=== PATIENT | female | born 1955 | race Caucasian/White ===

== ENCOUNTER 2018-12-18 21:36 | Emergency (ER) | payer OTHER, SELFPAY ==
[2018-12-18] MEDS ORDERED: FAMOTIDINE 20 MG/2 ML VIAL IV ONE (22:41)
[2018-12-18] MEDS ORDERED: ONDANSETRON 4 MG/2 ML VIAL ONE (22:41)
[2018-12-18 23:16] LABS: Absolute Monocytes 0.3 K/uL (0.1-1.3); Absolute Neutrophil 2.8 K/uL (1.8-8.0); Basophils % 0.9 % (0-1.3); Eosinophils % 1.6 % (0-4.4); Hematocrit 45.8 % (36.0-45.0); Lymphocytes % 38.5 % (15.3-44.8); MPV 8.5 fL (7.6-11.3); RBC Red Blood Cell Count 4.63 M/uL (3.86-4.86)
[2018-12-18 23:47] LABS: ALT/SGPT 46 U/L (12-78); AST/SGOT 48 U/L (15-37); Albumin 4.4 g/dL (3.4-5.0); Alkaline Phosphatase 66 U/L (45-117); BUN Blood Urea Nitrogen 6 mg/dL (7-18); Bicarbonate 29 mmol/L (21-32); Bilirubin Direct 0.1 mg/dL (0-0.2); Bilirubin Total 0.4 mg/dL (0.2-1.0); Glucose Level 100 mg/dL (74-106); Lipase 308 U/L (73-393); Magnesium 2.1 mg/dL (1.8-2.4); Potassium 4.2 mmol/L (3.5-5.1); Protein, Total 7.8 g/dL (6.4-8.2); Sodium Level 145 mmol/L (136-145)
--- NOTE | 2018-12-19 02:33 | ER ---
Nurse's Notes [facility] Name: Jyoti Trejo Age: 63 yrs Sex: Female : 1955 Arrival Date: 12/18/2018 Time: 21:36 Bed 13 Private MD: Diagnosis: Unspecified abdominal pain Presentation: 12/18 21:57 Presenting complaint: EMS states: PATIENT COMPLAINS OF ABD PAIN, RIGHT UPPER QUADRANT, rv AND IT MAKES HER HARDER TO BREATH. NO NAUSEA/VOMITING. SHE FELL LAST WEEK, LANDED ON HER BACK. NO OTHER ASSOCIATED SYMPTOMS. Transition of care: patient was not received from another setting of care. Onset of symptoms was December 18, 2018 at 21:30. Risk Assessment: Do you want to hurt yourself or someone else? Patient reports no desire to harm self or others. Initial Sepsis Screen: Does the patient meet any 2 criteria? No. Patient's initial sepsis screen is negative. Does the patient have a suspected source of infection? No. Patient's initial sepsis screen is negative. Care prior to arrival: None. 21:57 Method Of Arrival: EMS: [facility] 21:57 Acuity: SHANIKA 3 rv Triage Assessment: 22:04 General: Appears in no apparent distress. uncomfortable, unkempt, Behavior is calm, rv cooperative, Smells of alcohol. Pain: Complains of pain in right upper quadrant. EENT: No signs and/or symptoms were reported regarding the EENT system. Neuro: Level of Consciousness is awake, alert, obeys commands, Oriented to person, place, time, situation. Cardiovascular: Capillary refill < 3 seconds. Respiratory: Airway is patent. GI: Abdomen is flat. : No signs and/or symptoms were reported regarding the genitourinary system. Derm: Skin is intact. Musculoskeletal: No signs and/or symptoms reported regarding the musculoskeletal system. Historical: - Allergies: 22:02 No Known Allergies; rv - Home Meds: 22:02 None [Active]; rv - PMHx: 22:02 Hypertension; rv - PSHx: 22:02 Hysterectomy; Appendectomy; Cholecystectomy; rv - Immunization history:: Adult Immunizations unknown. - Social history:: Smoking status: Patient/guardian denies using tobacco, Patient uses alcohol, on a daily basis. - Ebola Screening: : Patient negative for fever greater than or equal to 101.5 degrees Fahrenheit, and additional compatible Ebola Virus Disease symptoms Patient denies exposure to infectious person Patient denies travel to an Ebola-affected area in the 21 days before illness onset. Screenin:06 Abuse screen: Denies threats or abuse. Denies injuries from another. Nutritional rv screening: No deficits noted. Tuberculosis screening: No symptoms or risk factors identified. Fall Risk None identified. Assessment: 22:05 General: Appears in no apparent distress. uncomfortable, Behavior is calm, cooperative, rr5 appropriate for age, Smells of alcohol. 22:05 Pain: Complains of pain in right upper quadrant Pain does not radiate. Pain currently rr5 is 8 out of 10 on a pain scale. Quality of pain is described as aching, Pain began 30 min ago. Is intermittent. Neuro: Level of Consciousness is awake, alert, obeys commands, Oriented to person, place, time, situation, Appropriate for age. Cardiovascular: Capillary refill < 3 seconds Patient's skin is warm and dry. Respiratory: Airway is patent Respiratory effort is even, unlabored, Respiratory pattern is regular, symmetrical. GI: Abdomen is round Reports lower abdominal pain. : No signs and/or symptoms were reported regarding the genitourinary system. EENT: No signs and/or symptoms were reported regarding the EENT system. Derm: No signs and/or symptoms reported regarding the dermatologic system. Musculoskeletal: Capillary refill < 3 seconds, Range of motion: intact in all extremities. 22:07 GI: Bowel sounds present X 4 quads. Abdomen is tender to palpation X 4 quads. rv 23:15 Reassessment: Patient appears in no apparent distress at this time. Patient is alert, rr5 oriented x 3, equal unlabored respirations, skin warm/dry/pink. asleep comfortably on bed. 04 00:30 Reassessment: Patient appears in no apparent distress at this time. Patient is alert, rr5 oriented x 3, equal unlabored respirations, skin warm/dry/pink. no complaints made. Patient states symptoms have improved. 01:30 Reassessment: Patient appears in no apparent distress at this time. Patient is alert, rr5 oriented x 3, equal unlabored respirations, skin warm/dry/pink. awaiting for result. Patient states feeling better. Patient states symptoms have improved. 03:00 Reassessment: Patient appears in no apparent distress at this time. Patient is alert, rr5 oriented x 3, equal unlabored respirations, skin warm/dry/pink. able to tolerate PO challenge. 03:28 Reassessment: Patient appears in no apparent distress at this time. Patient is alert, rr5 oriented x 3, equal unlabored respirations, skin warm/dry/pink. discharge instruction given and explained without complaints made. Patient states symptoms have improved. Vital Signs: 12/18 22:03 BP 105 / 76 LA; Pulse 98; Resp 19 S; Temp 97.9(O); Pulse Ox 100% on R/A; Weight 61.23 rv kg (R); Height 5 ft. 3 in. (160.02 cm) (R); 23:00 BP 108 / 70; Pulse 90; Resp 17; Pulse Ox 99% ; rr5 04 00:00 BP 110 / 76; Pulse 96; Resp 18; Pulse Ox 100% ; rr5 01:00 BP 115 / 70; Pulse 90; Resp 17; Pulse Ox 99% ; rr5 02:00 BP 105 / 65; Pulse 80; Resp 16; Pulse Ox 98% ; rr5 03:00 BP 109 / 63; Pulse 79; Resp 19; Pulse Ox 100% ; rr5 03:30 BP 118 / 70; Pulse 75; Resp 17; Pulse Ox 99% ; rr5 04 22:03 Body Mass Index 23.91 (61.23 kg, 160.02 cm) rv ED Course: 12/18 21:36 Patient arrived in ED. ds1 21:38 Dane Shore PA is PHCP. cp 21:38 Geovani Dowling MD is Attending Physician. cp 21:57 Travis Bruner RN is Primary Nurse. rv 21:59 Triage completed. rv 22:00 Maintain EMS IV. Dressing intact. Site clean \T\ dry. Gauge \T\ site: G20 right upper arm. rr 5 22:06 Patient has correct armband on for positive identification. Bed in low position. Call rv light in reach. Side rails up X 1. Adult w/ patient. Pulse ox on. NIBP on. 22:06 Patient placed in an exam room, on a stretcher, on pulse oximetry, Patient notified of rv wait time. 22:19 Oral contrast given. vm2 22:20 Inserted saline lock: 20 gauge in left antecubital area, using aseptic technique. Blood rr5 collected. 12/19 01:41 CT completed. Patient tolerated procedure well. Patient moved to CT via wheelchair. Patient moved back from CT. 02:04 CT Abd/Pelvis - W/Contrast: give oral contrast In Process Unspecified. EDMS 03:45 No provider procedures requiring assistance completed. IV discontinued, intact, rr5 bleeding controlled, No redness/swelling at site. Pressure dressing applied. Administered Medications: 12/18 22:25 Drug: Zofran 4 mg Route: IVP; Site: left antecubital; rr5 12/19 03:30 Follow up: Response: No adverse reaction rr5 12/18 22:27 Drug: Pepcid 20 mg Route: IVP; Site: left antecubital; rr5 12/19 03:30 Follow up: Response: No adverse reaction rr5 Outcome: 02:32 Discharge ordered by MD. cp 03:45 Discharged to home ambulatory. rr5 03:45 Discharge instructions given to patient, Instructed on discharge instructions, follow up and referral plans. Demonstrated understanding of instructions, follow-up care. 03:45 Condition: stable rr5 03:51 Patient left the ED. rr5 Signatures: Dispatcher [employer] Jose Bynum Gayatri Monahan ds1 Dane Shore PA PA cp McGuire, Victoria 2 Travis Bruner RN RN rv Roque, Raymond, RN RN rr5
--- NOTE | 2018-12-19 02:33 | EDPHYS ---
Physician Documentation [facility] Name: Jyoti Trejo Age: 63 yrs Sex: Female : 1955 Arrival Date: 12/18/2018 Time: 21:36 Bed 13 Private MD: ED Physician Geovani Dowling HPI: 12/18 22:30 This 63 yrs old Female presents to ER via EMS with complaints of Abdominal cp Pain. 22:30 The patient presents with abdominal pain in the right upper quadrant. cp 22:30 Onset: The symptoms/episode began/occurred today. cp 22:30 The symptoms do not radiate. Associated signs and symptoms: Pertinent negatives: blood cp in stools, chest pain, constipation, diarrhea, fever, vomiting. The symptoms are described as constant. Modifying factors: The symptoms are alleviated by nothing, the symptoms are aggravated by pressure. Severity of pain: in the emergency department the pain is unchanged despite home interventions. Historical: - Allergies: 22:02 No Known Allergies; rv - Home Meds: 22:02 None [Active]; rv - PMHx: 22:02 Hypertension; rv - PSHx: 22:02 Hysterectomy; Appendectomy; Cholecystectomy; rv - Immunization history:: Adult Immunizations unknown. - Social history:: Smoking status: Patient/guardian denies using tobacco, Patient uses alcohol, on a daily basis. - Ebola Screening: : Patient negative for fever greater than or equal to 101.5 degrees Fahrenheit, and additional compatible Ebola Virus Disease symptoms Patient denies exposure to infectious person Patient denies travel to an Ebola-affected area in the 21 days before illness onset. ROS: 22:35 Constitutional: Negative for body aches, chills, fever, poor PO intake. cp 22:35 Eyes: Negative for injury, pain, redness, and discharge. cp 22:35 ENT: Negative for drainage from ear(s), ear pain, sore throat, difficulty swallowing, difficulty handling secretions. 22:35 Cardiovascular: Negative for chest pain, palpitations. 22:35 Respiratory: Negative for cough, shortness of breath, wheezing. 22:35 Abdomen/GI: Positive for abdominal pain, Negative for vomiting, diarrhea, constipation, black/tarry stool, rectal bleeding. 22:35 Back: Negative for radiated pain. 22:35 : Negative for urinary symptoms, vaginal bleeding. 22:35 Skin: Negative for rash. 22:35 Neuro: Negative for altered mental status, headache, syncope, weakness. 22:35 All other systems are negative. Exam: 22:45 Constitutional: The patient appears in no acute distress, alert, awake, cp non-diaphoretic, non-toxic, well developed, well nourished. 22:45 Head/Face: Normocephalic, atraumatic. cp 22:45 Eyes: Periorbital structures: appear normal, Conjunctiva: normal, no exudate, no injection, Sclera: no appreciated abnormality, Lids and lashes: appear normal, bilaterally. 22:45 ENT: External ear(s): are unremarkable, Nose: is normal, Mouth: Lips: moist, Oral mucosa: moist, Posterior pharynx: Airway: no evidence of obstruction, patent, swelling, is not appreciated, erythema, is not appreciated, exudate, is not appreciated. 22:45 Chest/axilla: Inspection: normal, Palpation: is normal, no crepitus, no tenderness. 22:45 Cardiovascular: Rate: normal, Rhythm: regular, Edema: is not appreciated, JVD: is not appreciated. 22:45 Respiratory: the patient does not display signs of respiratory distress, Respirations: normal, no use of accessory muscles, no retractions, no splinting, no tachypnea, labored breathing, is not present, Breath sounds: are clear throughout, no decreased breath sounds, no stridor, no wheezing. 22:45 Abdomen/GI: Inspection: abdomen appears normal, Bowel sounds: active, all quadrants, Palpation: soft, in all quadrants, moderate abdominal tenderness, in the right upper quadrant, involuntary guarding, is not appreciated. 22:45 Back: pain, is absent, ROM is normal. 22:45 Skin: no rash present. Vital Signs: 22:03 BP 105 / 76 LA; Pulse 98; Resp 19 S; Temp 97.9(O); Pulse Ox 100% on R/A; Weight 61.23 rv kg (R); Height 5 ft. 3 in. (160.02 cm) (R); 23:00 BP 108 / 70; Pulse 90; Resp 17; Pulse Ox 99% ; rr5 04/05 00:00 BP 110 / 76; Pulse 96; Resp 18; Pulse Ox 100% ; rr5 01:00 BP 115 / 70; Pulse 90; Resp 17; Pulse Ox 99% ; rr5 02:00 BP 105 / 65; Pulse 80; Resp 16; Pulse Ox 98% ; rr5 03:00 BP 109 / 63; Pulse 79; Resp 19; Pulse Ox 100% ; rr5 03:30 BP 118 / 70; Pulse 75; Resp 17; Pulse Ox 99% ; rr5 12/18 22:03 Body Mass Index 23.91 (61.23 kg, 160.02 cm) rv MDM: 12/18 21:38 Patient medically screened. cp 22:00 Differential diagnosis: AAA, acute coronary syndrome, gastritis, gastroesophageal cp reflux disease, GI Bleed, non-specific abd pain, pancreatitis, Peptic Ulcer Disease, Perf. Duodenal Ulcer, Perf. Gastric Ulcer. 12/19 02:31 Data reviewed: vital signs, nurses notes, lab test result(s), radiologic studies, CT cp scan. 02:31 Counseling: I had a detailed discussion with the patient and/or guardian regarding: the cp historical points, exam findings, and any diagnostic results supporting the discharge/admit diagnosis, lab results, radiology results, to return to the emergency department if symptoms worsen or persist or if there are any questions or concerns that arise at home. Response to treatment: the patient's symptoms have markedly improved after treatment, and as a result, I will discharge patient. Special discussion: Based on the patient's Hx, exam, and Dx evaluation, there is no indication for emergent surgery or inpatient Tx. It is understood by the patient/guardian that if the Sx's persist or worsen they need to return immediately for re-evaluation. ED course: VSS. Pain markedly improved with treatment. Patient appears w/o pain while walking in ED. 12/18 22:17 Order name: Basic Metabolic Panel; Complete Time: 00:00 cp 12/18 22:17 Order name: CBC with Diff; Complete Time: 00:00 cp 12/18 22:17 Order name: Creatinine for Radiology; Complete Time: 00:00 cp 12/18 22:17 Order name: Hepatic Function; Complete Time: 00:00 cp 12/18 22:17 Order name: Lipase; Complete Time: 00:00 cp 12/18 22:18 Order name: Magnesium; Complete Time: 00:00 cp 12/18 22:17 Order name: IV Saline Lock; Complete Time: 23:11 cp 12/18 22:17 Order name: Labs collected and sent; Complete Time: 23:11 cp 12/18 22:18 Order name: CT Abd/Pelvis - W/Contrast: give oral contrast cp 12/19 02:31 Order name: PO challenge; Complete Time: 03:07 cp Administered Medications: 12/18 22:25 Drug: Zofran 4 mg Route: IVP; Site: left antecubital; rr5 12/19 03:30 Follow up: Response: No adverse reaction rr5 12/18 22:27 Drug: Pepcid 20 mg Route: IVP; Site: left antecubital; rr5 12/19 03:30 Follow up: Response: No adverse reaction rr5 Disposition: 03:52 Co-signature as Attending Physician, Geovani Dowling MD. ma2 Disposition: 12/19/18 02:32 Discharged to Home. Impression: Unspecified abdominal pain. - Condition is Stable. - Discharge Instructions: Abdominal Pain, Adult. - Medication Reconciliation Form, Thank You Letter, Antibiotic Education, Prescription Opioid Use form. - Follow up: Private Physician; When: 1 - 2 days; Reason: Recheck today's complaints. - Problem is new. - Symptoms have improved. Signatures: Dispatcher [employer] EDMS Dane Shore PA PA cp Alzahri, Mohammad, MD MD ma2 Travis Bruner RN RN Rivas Singh RN RN rr5 Corrections: (The following items were deleted from the chart) 03:51 02:32 12/19/2018 02:32 Discharged to Home. Impression: Unspecified abdominal pain. rr5 Condition is Stable. Forms are Medication Reconciliation Form, Thank You Letter, Antibiotic Education, Prescription Opioid Use. Follow up: Private Physician; When: 1 - 2 days; Reason: Recheck today's complaints. Problem is new. Symptoms have improved. cp
--- NOTE | 2018-12-19 09:46 | RAD REPORT ---
EXAM DESCRIPTION: CT - Abdomen Pelvis W Contrast - 12/19/2018 5:09 am CLINICAL HISTORY: The patient is 63 years old and is Female; ABD PAIN TECHNIQUE: Axial computed tomography images of the abdomen and pelvis with intravenous contrast. S agittal and coronal reformatted images were created and reviewed. This CT exam was performed using one or more of the following dose reduction techniques: automated exposure control, adjustment of t he mA and/or kV according to patient size, and/or use of iterative reconstruction technique. Oral contrast was administered. Delayed imaging was performed. COMPARISON: None. FINDINGS: LUNG BASES: Unremarkable. No mass. No consolidation. ABDOMEN: LIVER: Advanced diffuse hepatic steatosis. Focal subcapsular hypodensity in the inferior left hepa tic lobe measuring 3.7 x 2.1 cm. Findings demonstrates progressive centripetal filling on portal veno us and delayed phase images. GALLBLADDER AND BILE DUCTS: Prior cholecystectomy. No ductal dilation. PANCREAS: Unremarkable. No mass. No ductal dilation. SPLEEN: Unremarkable. No splenomegaly. ADRENALS: Unremarkable. No mass. KIDNEYS AND URETERS: Multiple subcentimeter right renal cysts are present. No suspicious enhancing renal mass. Symmetrical contrast excretion on delayed phase images. No hydronephrosis. STOMACH AND BOWEL: Prior gastroplasty is partially evaluated. Enteric contrast is seen throughout the distal small bowel and large bowel. Few sigmoid diverticula are present. No acute diverticulitis. PELVIS: APPENDIX: No findings to suggest acute appendicitis. BLADDER: Bladder is decompressed. REPRODUCTIVE: Prior hysterectomy. ABDOMEN and PELVIS: INTRAPERITONEAL SPACE: Unremarkable. No free air. No significant fluid collection. BONES/JOINTS: No acute fracture. No dislocation. SOFT TISSUES: Unremarkable. VASCULATURE: See above. LYMPH NODES: Unremarkable. No enlarged lymph nodes. IMPRESSION: 1. No acute abdominal or pelvic abnormality. 2. Diffuse hepatic steatosis with subcapsular hypodensity in the the left hepatic lobe with progres sive centripetal filling likely representing hemangioma. 3. Prior cholecystectomy. 4. Prior gastroplasty and hysterectomy. Electronically signed by: Michael Giron DO 12/19/2018 2:20 AM CDT Due to temporary technical issues with the PACS/Fluency reporting system, reports are being signed by the in house radiologist as a courtesy to ensure prompt reporting. The interpreting radiologist is augie castañedaly responsible for the content of the report.
== END 2018-12-19 03:51 | disposition home or self-care (01) ==
LOC: ER 21:36
DX: R10.9 Unspecified abdominal pain (principal); I10 Essential (primary) hypertension
CPT/HCPCS: 36415; 74177; 80048; 80076; 83690; 83735; 85025; 96374; 96375; 99284; J2405; Q9967

== ENCOUNTER 2020-01-06 10:55 | Emergency (ER) | payer SELFPAY ==
[2020-01-06 11:36] LABS: Absolute Lymphocytes (CBC) 1.5 K/uL (0.7-4.9); Basophils % 0.4 % (0-1.3); Hematocrit 41.7 % (36.0-45.0); Lymphocytes % 24.6 % (15.3-44.8); MPV 8.2 fL (7.6-11.3); RBC Red Blood Cell Count 4.32 M/uL (3.86-4.86)
[2020-01-06 11:45] LABS: Urine Blood NEGATIVE (NEG); Urine Glucose NEGATIVE (NEG); Urine Protein NEGATIVE (NEG); Urine Specific Gravity >1.030 (1.005-1.030); Urine pH 5.5 (5.0-7.0)
[2020-01-06 11:54] LABS: Albumin 3.9 g/dL (3.4-5.0); Bilirubin Direct 0.2 mg/dL (0-0.2); Bilirubin Total 0.6 mg/dL (0.2-1.0); Potassium 3.6 mmol/L (3.5-5.1)
--- NOTE | 2020-01-06 11:59 | EDPHYS ---
Physician Documentation [facility] Name: Jyoti Trejo Age: 64 yrs Sex: Female : 1955 Arrival Date: 01/06/2020 Time: 10:58 Bed 20 Private MD: ED Physician Mahamed Ventura HPI: 01/05 11:56 This 64 yrs old Female presents to ER via Ambulatory with complaints of kb Abdominal Pain, Diarrhea. 11:57 The patient presents to the emergency department with diarrhea, abdominal pain, kb described as crampy. Onset: The symptoms/episode began/occurred 3 day(s) ago. Possible causes: unknown. The symptoms are aggravated by nothing. The symptoms are alleviated by nothing. Associated signs and symptoms: Pertinent positives: abdominal pain, diarrhea, Pertinent negatives: fever, nausea, vomiting. Severity of symptoms: At their worst the symptoms were moderate in the emergency department the symptoms are unchanged. The patient has not experienced similar symptoms in the past. The patient has not recently seen a physician. Historical: - Allergies: 11:06 No Known Allergies; ca1 - PMHx: 11:06 Hypertension; ca1 - PSHx: 11:06 Hysterectomy; Appendectomy; Cholecystectomy; ; ca1 - Immunization history:: Adult Immunizations up to date, Flu vaccine is not up to date. - Social history:: Smoking status: Patient denies any tobacco usage or history of. ROS: 11:55 Constitutional: Negative for fever, chills, and weight loss, Cardiovascular: Negative kb for chest pain, palpitations, and edema, Respiratory: Negative for shortness of breath, cough, wheezing, and pleuritic chest pain, Back: Negative for injury and pain, MS/Extremity: Negative for injury and deformity, Skin: Negative for injury, rash, and discoloration, Neuro: Negative for headache, weakness, numbness, tingling, and seizure. 11:55 Abdomen/GI: Positive for abdominal pain, diarrhea, Negative for nausea and vomiting, abdominal cramps. Exam: 11:55 Constitutional: This is a well developed, well nourished patient who is awake, alert, kb and in no acute distress. Head/Face: Normocephalic, atraumatic. Neck: Trachea midline, no thyromegaly or masses palpated, and no cervical lymphadenopathy. Supple, full range of motion without nuchal rigidity, or vertebral point tenderness. No Meningismus. Chest/axilla: Normal chest wall appearance and motion. Nontender with no deformity. No lesions are appreciated. Cardiovascular: Regular rate and rhythm with a normal S1 and S2. No gallops, murmurs, or rubs. Normal PMI, no JVD. No pulse deficits. Respiratory: Lungs have equal breath sounds bilaterally, clear to auscultation and percussion. No rales, rhonchi or wheezes noted. No increased work of breathing, no retractions or nasal flaring. Abdomen/GI: Soft, non-tender, with normal bowel sounds. No distension or tympany. No guarding or rebound. No evidence of tenderness throughout. Back: No spinal tenderness. No costovertebral tenderness. Full range of motion. Skin: Warm, dry with normal turgor. Normal color with no rashes, no lesions, and no evidence of cellulitis. MS/ Extremity: Pulses equal, no cyanosis. Neurovascular intact. Full, normal range of motion. Neuro: Awake and alert, GCS 15, oriented to person, place, time, and situation. Cranial nerves II-XII grossly intact. Motor strength 5/5 in all extremities. Sensory grossly intact. Cerebellar exam normal. Normal gait. Vital Signs: 11:01 BP 187 / 96; Pulse 90; Resp 17 S; Temp 98.5(TE); Pulse Ox 100% on R/A; Weight 63.5 kg ca1 (R); Height 5 ft. 2 in. (157.48 cm) (R); Pain 3/10; 11:30 BP 160 / 97; Pulse 80; Resp 17 S; Pulse Ox 100% on R/A; ca1 12:10 BP 157 / 90; Pulse 80; Resp 17 S; Pulse Ox 100% on R/A; ca1 11:01 Body Mass Index 25.61 (63.50 kg, 157.48 cm) ca1 MDM: 11:08 Patient medically screened. kb 11:55 Data reviewed: vital signs, nurses notes. Counseling: I had a detailed discussion with ketty the patient and/or guardian regarding: the historical points, exam findings, and any diagnostic results supporting the discharge/admit diagnosis, lab results, the need for outpatient follow up, a family practitioner, to return to the emergency department if symptoms worsen or persist or if there are any questions or concerns that arise at home. 11:56 Data interpreted: Pulse oximetry: on room air is 100 %. Interpretation: normal. kb 01/05 11:17 Order name: Basic Metabolic Panel; Complete Time: 11:54 kb 01/05 11:17 Order name: CBC with Diff; Complete Time: 11:37 kb 01/05 11:17 Order name: Hepatic Function; Complete Time: 11:54 kb 01/05 11:17 Order name: Lipase; Complete Time: 11:54 kb 01/05 11:17 Order name: IV Saline Lock; Complete Time: 11:30 kb 01/05 11:17 Order name: Labs collected and sent; Complete Time: 11:30 kb 01/05 11:36 Order name: Urine Dipstick--Ancillary (enter results); Complete Time: 11:47 bd Administered Medications: No medications were administered Disposition: 14:46 Co-signature as Attending Physician, Mahamed Ventura MD I agree with the assessment and kdr plan of care. Disposition: 01/06/20 11:58 Discharged to Home. Impression: Diarrhea, unspecified. - Condition is Stable. - Discharge Instructions: Food Choices to Help Relieve Diarrhea, Adult, Diarrhea, Adult, [id number]. - Prescriptions for Bentyl 20 mg Oral Tablet - take 1 tablet by ORAL route every 6 hours As needed; 20 tablet. - Work release form, Medication Reconciliation Form, Thank You Letter, Antibiotic Education, Prescription Opioid Use form. - Follow up: Emergency Department; When: As needed; Reason: Worsening of condition. Follow up: Private Physician; When: 2 - 3 days; Reason: Recheck today's complaints, Continuance of care, Re-evaluation by your physician. - Notes: [facility] hotline Signatures: Dispatcher [employer] EDNJ Melody Washington, ISAIAS JAFFE-Mahamed Arredondo MD MD kdr Acob, Cheryl, RN RN ca1 Corrections: (The following items were deleted from the chart) 12:16 11:58 01/06/2020 11:58 Discharged to Home. Impression: Diarrhea, unspecified. Condition ca1 is Stable. Forms are Medication Reconciliation Form, Thank You Letter, Antibiotic Education, Prescription Opioid Use. Follow up: Emergency Department; When: As needed; Reason: Worsening of condition. Follow up: Private Physician; When: 2 - 3 days; Reason: Recheck today's complaints, Continuance of care, Re-evaluation by your physician. kb
--- NOTE | 2020-01-06 11:59 | ER ---
Nurse's Notes [facility] Name: Jyoti Trejo Age: 64 yrs Sex: Female : 1955 Arrival Date: 01/06/2020 Time: 10:58 Bed 20 Private MD: Diagnosis: Diarrhea, unspecified Presentation: 01/05 11:01 Chief complaint: Patient states: Abdominal pain and diarrhea x 3 days. Reports fever 3 ca1 days ago with the diarrhea. Tried going back to work today, required to submit a work note. Coronavirus screen: Proceed with normal triage. Patient denies a cough. Patient denies shortness of breath or difficulty breathing. Patient denies measured and/or subjective temperature greater than 100.4F prior to today's visit. Patient denies travel on a cruise ship or to a country the [facility] currently lists as an affected area. Patient denies contact with known and/or suspected case of COVID-19. Ebola Screen: Patient negative for fever greater than or equal to 101.5 degrees Fahrenheit, and additional compatible Ebola Virus Disease symptoms Patient denies exposure to infectious person. Patient denies travel to an Ebola-affected area in the 21 days before illness onset. No symptoms or risks identified at this time. Initial Sepsis Screen: Does the patient meet any 2 criteria? No. Patient's initial sepsis screen is negative. Does the patient have a suspected source of infection? No. Patient's initial sepsis screen is negative. Risk Assessment: Do you want to hurt yourself or someone else? Patient reports no desire to harm self or others. Onset of symptoms was January 06, 2020. 11:01 Method Of Arrival: Ambulatory ca1 11:01 Acuity: SHANIKA 3 ca1 Historical: - Allergies: 11:06 No Known Allergies; ca1 - PMHx: 11:06 Hypertension; ca1 - PSHx: 11:06 Hysterectomy; Appendectomy; Cholecystectomy; ; ca1 - Immunization history:: Adult Immunizations up to date, Flu vaccine is not up to date. - Social history:: Smoking status: Patient denies any tobacco usage or history of. Screenin:16 Abuse screen: Denies threats or abuse. Denies injuries from another. Nutritional ca1 screening: No deficits noted. Tuberculosis screening: No symptoms or risk factors identified. Fall Risk IV access (20 points). Assessment: 11:16 General: Appears in no apparent distress. comfortable, Behavior is calm, cooperative, ca1 appropriate for age. Pain: Complains of pain in abdomen Pain does not radiate. Pain currently is 3 out of 10 on a pain scale. Pain began 2-3 days ago. Neuro: Level of Consciousness is awake, alert, obeys commands, Oriented to person, place, time, situation, Appropriate for age. Cardiovascular: Heart tones S1 S2 present Capillary refill < 3 seconds Patient's skin is warm and dry. Respiratory: Airway is patent Respiratory effort is even, unlabored, Respiratory pattern is regular, symmetrical, Breath sounds are clear bilaterally. GI: Abdomen is round non-distended, Bowel sounds present X 4 quads. Abd is soft and non tender X 4 quads. Reports diarrhea. : No signs and/or symptoms were reported regarding the genitourinary system. EENT: No signs and/or symptoms were reported regarding the EENT system. Derm: Skin is intact, is healthy with good turgor, Skin is pink, warm \T\ dry. Musculoskeletal: Circulation, motion, and sensation intact. Capillary refill < 3 seconds. 12:10 Reassessment: Patient appears in no apparent distress at this time. Patient is alert, ca1 oriented x 3, equal unlabored respirations, skin warm/dry/pink. Vital Signs: 11:01 BP 187 / 96; Pulse 90; Resp 17 S; Temp 98.5(TE); Pulse Ox 100% on R/A; Weight 63.5 kg ca1 (R); Height 5 ft. 2 in. (157.48 cm) (R); Pain 3/10; 11:30 BP 160 / 97; Pulse 80; Resp 17 S; Pulse Ox 100% on R/A; ca1 12:10 BP 157 / 90; Pulse 80; Resp 17 S; Pulse Ox 100% on R/A; ca1 11:01 Body Mass Index 25.61 (63.50 kg, 157.48 cm) ca1 ED Course: 10:58 Patient arrived in ED. ag5 10:58 Melody Washington [facility]C [facility] kb 10:58 Mahamed Ventura MD is Attending Physician. kb 11:05 Triage completed. ca1 11:06 Arm band placed on right wrist. ca1 11:15 Marisa Cummings, MAIKEL is Primary Nurse. ca1 11:16 Patient has correct armband on for positive identification. Placed in gown. Bed in low ca1 position. Call light in reach. Side rails up X 1. Pulse ox on. NIBP on. 11:27 No provider procedures requiring assistance completed. Initial lab(s) drawn, by me, ca1 sent to lab. Inserted saline lock: 20 gauge in right antecubital area, using aseptic technique. Blood collected. 12:15 IV discontinued, intact, bleeding controlled, No redness/swelling at site. Pressure ca1 dressing applied. Administered Medications: No medications were administered Outcome: 11:58 Discharge ordered by . ketty 12:15 Discharged to home ambulatory. ca1 12:15 Condition: stable 12:15 Discharge instructions given to patient, Instructed on discharge instructions, follow up and referral plans. medication usage, Demonstrated understanding of instructions, follow-up care, medications, Prescriptions given X 1. 12:16 Patient left the ED. ca1 Signatures: Melody Washington, ISAIAS JAFFE-Marisa Valentine RN RN ca1 Abhilash Marino ag5
[2020-01-06 12:42] VITALS: TEMP 98.5; O2SAT 100
[2020-01-06 12:45] VITALS: BP 157/90
== END 2020-01-06 12:16 | disposition home or self-care (01) ==
LOC: ER 10:55
DX: R19.7 Diarrhea, unspecified (principal); I10 Essential (primary) hypertension
CPT/HCPCS: 36415; 80048; 80076; 81003; 83690; 85025; 99284

== ENCOUNTER 2020-08-04 20:44 | Emergency (ER) | payer SELFPAY ==
[2020-08-04 21:42] LABS: Absolute Lymphocytes (CBC) 2.3 K/uL (0.7-4.9); Basophils % 0.8 % (0-1.3); Hematocrit 43.8 % (36.0-45.0); Lymphocytes % 42.2 % (15.3-44.8); MPV 8.3 fL (7.6-11.3); RBC Red Blood Cell Count 4.74 M/uL (3.86-4.86)
[2020-08-04 21:43] LABS: Urine Blood NEGATIVE (NEG); Urine Glucose NEGATIVE (NEG); Urine Protein NEGATIVE (NEG); Urine pH 5.5 (5.0-7.0)
[2020-08-04 21:45] LABS: Protime INR 0.97
[2020-08-04 21:52] LABS: Barbiturates NEGATIVE (NEGATIVE); Benzodiazepines NEGATIVE (NEGATIVE); Cocaine NEGATIVE (NEGATIVE); METHAMPHETAM NEGATIVE (NEGATIVE); Methadone NEGATIVE (NEGATIVE); Opiates NEGATIVE (NEGATIVE); Phencyclidine NEGATIVE (NEGATIVE); THC Cannibis NEGATIVE (NEGATIVE)
[2020-08-04 21:52] LABS: ALT/SGPT 29 U/L (12-78); AST/SGOT 24 U/L (15-37); Albumin 3.6 g/dL (3.4-5.0); Alkaline Phosphatase 70 U/L (45-117); BUN Blood Urea Nitrogen 11 mg/dL (7-18); Bicarbonate 27 mmol/L (21-32); Bilirubin Direct < 0.1 mg/dL (0-0.2); Bilirubin Total 0.3 mg/dL (0.2-1.0); Glucose Level 101 mg/dL (74-106); Potassium 3.7 mmol/L (3.5-5.1); Protein, Total 6.7 g/dL (6.4-8.2); Sodium Level 144 mmol/L (136-145)
[2020-08-04] MEDS ORDERED: THIAMINE 200 MG/2 ML INJ ONE (22:14)
[2020-08-04] MEDS ORDERED: MULTIVITAMINS 10 ML VIAL (INJ) IV ONE (22:14)
[2020-08-04 22:15] LABS: Urine Bacteria LOADED /HPF (<20); Urine Culture Reflex Order REFLEXED; Urine Mucus 2+ /HPF (NONE SEEN)
[2020-08-04] MEDS ORDERED: FOLIC ACID 5 MG/ML VIAL ONE (22:15)
[2020-08-04] MEDS ORDERED: NA CHLORIDE 0.9% 1,000 ML ONE (22:15)
[2020-08-05] MEDS ORDERED: CIPROFLOXACIN HCL 500 MG TAB ONE (00:03)
--- NOTE | 2020-08-05 05:28 | EDPHYS ---
Physician Documentation [facility] Name: Jyoti Trejo Age: 64 yrs Sex: Female : 1955 Arrival Date: 08/04/2020 Time: 20:53 Bed 5 Private MD: ED Physician Deepak Sherwood HPI: 08/04 21:57 This 64 yrs old Female presents to ER via EMS with complaints of Depression. pkl 21:57 The patient presents to the emergency department with depression, over a , the pkl patient's child, suicide ideation, but the patient has no formulated plan. Onset: The symptoms/episode began/occurred 3 month(s) ago. Associated signs and symptoms: The patient has no apparent associated signs or symptoms. Historical: - Allergies: 21: No Known Allergies; rr5 - Home Meds: 21:01 None [Active]; rr5 - PMHx: 21:01 Hypertension; Depression; rr5 - Immunization history:: Adult Immunizations up to date. - Social history:: Smoking status: unknown Patient uses alcohol, on a daily basis. Patient/guardian denies using street drugs. ROS: 21:57 Eyes: Negative for injury, pain, redness, and discharge, ENT: Negative for injury, pkl pain, and discharge, Neck: Negative for injury, pain, and swelling, Cardiovascular: Negative for chest pain, palpitations, and edema, Respiratory: Negative for shortness of breath, cough, wheezing, and pleuritic chest pain, Abdomen/GI: Negative for abdominal pain, nausea, vomiting, diarrhea, and constipation, Back: Negative for injury and pain, : Negative for injury, bleeding, discharge, and swelling, MS/Extremity: Negative for injury and deformity, Skin: Negative for injury, rash, and discoloration, Neuro: Negative for headache, weakness, numbness, tingling, and seizure. 21:57 Psych: Positive for depression, suicidal ideation. Exam: 21:57 Head/Face: Normocephalic, atraumatic. Eyes: Pupils equal round and reactive to light, pkl extra-ocular motions intact. Lids and lashes normal. Conjunctiva and sclera are non-icteric and not injected. Cornea within normal limits. Periorbital areas with no swelling, redness, or edema. ENT: Nares patent. No nasal discharge, no septal abnormalities noted. Tympanic membranes are normal and external auditory canals are clear. Oropharynx with no redness, swelling, or masses, exudates, or evidence of obstruction, uvula midline. Mucous membranes moist. Neck: Trachea midline, no thyromegaly or masses palpated, and no cervical lymphadenopathy. Supple, full range of motion without nuchal rigidity, or vertebral point tenderness. No Meningismus. Chest/axilla: Normal chest wall appearance and motion. Nontender with no deformity. No lesions are appreciated. Cardiovascular: Regular rate and rhythm with a normal S1 and S2. No gallops, murmurs, or rubs. Normal PMI, no JVD. No pulse deficits. Respiratory: Lungs have equal breath sounds bilaterally, clear to auscultation and percussion. No rales, rhonchi or wheezes noted. No increased work of breathing, no retractions or nasal flaring. Abdomen/GI: Soft, non-tender, with normal bowel sounds. No distension or tympany. No guarding or rebound. No evidence of tenderness throughout. Back: No spinal tenderness. No costovertebral tenderness. Full range of motion. Skin: Warm, dry with normal turgor. Normal color with no rashes, no lesions, and no evidence of cellulitis. MS/ Extremity: Pulses equal, no cyanosis. Neurovascular intact. Full, normal range of motion. Neuro: Awake and alert, GCS 15, oriented to person, place, time, and situation. Cranial nerves II-XII grossly intact. Motor strength 5/5 in all extremities. Sensory grossly intact. Cerebellar exam normal. Normal gait. 21:57 Psych: Behavior/mood is cooperative, Affect is calm, Patient having thoughts of suicide. Denies suicidal plan. Vital Signs: 20:55 BP 177 / 123; Pulse 112; Resp 19; Temp 98.2; Pulse Ox 100% ; Weight 68.04 kg; Height 5 rr5 ft. 2 in. (157.48 cm); Pain 0/10; 22:07 BP 155 / 80; Pulse 95; Resp 19; Pulse Ox 99% ; rr5 08/05 02:00 BP 142 / 70; Pulse 85; Resp 16; Temp 98; Pulse Ox 99% ; rr5 05:40 BP 146 / 80; Pulse 80; Resp 16; Temp 98.1; Pulse Ox 99% ; rr5 08/04 20:55 Body Mass Index 27.44 (68.04 kg, 157.48 cm) rr5 MDM: 08/04 21:44 Patient medically screened. [facility] 08/05 05:21 Data reviewed: vital signs, nurses notes, lab test result(s), EKG, radiologic studies. [facility] ED course: Patient feeling much better. Alert and ambulatory. Not in any distress. Denies she is suicidal. wants to go home. Advised to follow up [facility] psychiatric evaluation. Patient understood instruction. 08/04 21:04 Order name: Acetaminophen; Complete Time: 23:34 [facility] 08/04 21:04 Order name: Basic Metabolic Panel; Complete Time: 23:34 [facility] 08/04 21:04 Order name: CBC with Diff; Complete Time: 23:34 [facility] 08/04 21:04 Order name: ETOH Level; Complete Time: 23:34 [facility] 08/04 21:04 Order name: Hepatic Function; Complete Time: 23:34 [facility] 08/04 21:04 Order name: PT-INR; Complete Time: 23:34 [facility] 08/04 21:04 Order name: Ptt, Activated; Complete Time: 23:34 [facility] 08/04 21:04 Order name: Salicylate; Complete Time: 23:34 [facility] 08/04 21:04 Order name: Urine Drug Screen; Complete Time: 23:34 [facility] 08/04 21:34 Order name: Urine Dipstick--Ancillary (enter results); Complete Time: 23:34 [facility] 08/04 21:35 Order name: Urine Microscopic Only; Complete Time: 23:34 [facility] 08/04 22:16 Order name: Urine Culture [facility] 08/05 01:48 Order name: ETOH Level; Complete Time: 05:16 [facility] 08/05 04:35 Order name: ETOH Level: repeat at 0530 [facility] 08/04 21:04 Order name: EKG; Complete Time: 21:05 [facility] 08/04 21:04 Order name: EKG - Nurse/Tech; Complete Time: 21:31 [facility] 08/04 21:04 Order name: IV Saline Lock; Complete Time: 21:31 [facility] 08/04 21:04 Order name: Labs collected and sent; Complete Time: 21:31 [facility] 08/04 21:04 Order name: Urine Dipstick-Ancillary (obtain specimen); Complete Time: 21:31 rr5 Administered Medications: 08/04 22:06 Drug: Banana Bag - (NS 0.9% 1000 ml, foLIC Acid 1 mg, Thiamine 100 mg, Multivitamin 1 rr5 amp) Route: IV; Rate: calculated rate; Site: right hand; 08/05 04:00 Follow up: Response: No adverse reaction; IV Status: Completed infusion; IV Intake: rr5 1000ml 08/04 23:57 Drug: Cipro 500 mg Route: PO; ea 08/05 01:00 Follow up: Response: No adverse reaction rr5 Disposition: 08/05/20 05:27 Discharged to Home. Impression: Depression. Alcohol intoxication. - Condition is Stable. - Prescriptions for Celexa 20 mg Oral Tablet - take 1 tablet by ORAL route once daily; 30 tablet. - Medication Reconciliation Form, Thank You Letter, Antibiotic Education, Prescription Opioid Use form. - Follow up: Private Physician; When: 1 - 2 days; Reason: Re-evaluation by your physician. - Problem is new. - Symptoms have improved. Signatures: Dispatcher [employer] EDDeepak Andrews MD MD pkl Jemma Cabello RN RN Rivas Tsang RN RN rr5 Corrections: (The following items were deleted from the chart) 05:41 05:27 08/05/2020 05:27 Discharged to Home. Impression: Depression. Alcohol rr5 intoxication. Condition is Stable. Forms are Medication Reconciliation Form, Thank You Letter, Antibiotic Education, Prescription Opioid Use. Follow up: Private Physician; When: 1 - 2 days; Reason: Re-evaluation by your physician. Problem is new. Symptoms have improved. pkl
--- NOTE | 2020-08-05 05:28 | ER ---
Nurse's Notes [facility] Name: Jyoti Trejo Age: 64 yrs Sex: Female : 1955 Arrival Date: 08/04/2020 Time: 20:53 Bed 5 Private MD: Diagnosis: Depression. Alcohol intoxication Presentation: 08/04 20:55 Chief complaint: EMS states: patient expressed suicidal thought but no action, she loss rr5 her daughter, got into and depressed for months now. had a 3 rounds of rum. 20:55 Coronavirus screen: Client denies travel out of the [place] in the last 14 days. At this rr5 time, the client does not indicate any symptoms associated with coronavirus-19. Ebola Screen: Patient negative for fever greater than or equal to 101.5 degrees Fahrenheit, and additional compatible Ebola Virus Disease symptoms Patient denies exposure to infectious person. Patient denies travel to an Ebola-affected area in the 21 days before illness onset. Initial Sepsis Screen: Does the patient meet any 2 criteria? HR > 90 bpm. Does the patient have a suspected source of infection? No. Patient's initial sepsis screen is negative. Risk Assessment: Do you want to hurt yourself or someone else? Patient reports desire/thoughts of hurting themselves or someone else. Provider notified. Onset of symptoms was August 04, 2020. 20:55 Method Of Arrival: EMS: [facility] rr5 20:55 Acuity: SHANIKA 2 rr5 Historical: - Allergies: 21:01 No Known Allergies; rr5 - Home Meds: 21:01 None [Active]; rr5 - PMHx: 21:01 Hypertension; Depression; rr5 - Immunization history:: Adult Immunizations up to date. - Social history:: Smoking status: unknown Patient uses alcohol, on a daily basis. Patient/guardian denies using street drugs. Screenin:00 Abuse screen: Denies threats or abuse. Denies injuries from another. Nutritional rr5 screening: No deficits noted. Tuberculosis screening: No symptoms or risk factors identified. Fall Risk IV access (20 points). Total Manrique Fall Scale indicates No Risk (0-24 pts). Assessment: 21:00 General: Appears in no apparent distress. comfortable, Behavior is calm, cooperative, rr5 Smells of alcohol, Reports depressed and having suicidal thought. Pain: Denies pain. Neuro: Level of Consciousness is awake, alert, obeys commands, Oriented to person, place, time. Cardiovascular: Capillary refill < 3 seconds Patient's skin is warm and dry. Respiratory: Airway is patent Respiratory effort is even, unlabored, Respiratory pattern is regular, symmetrical. GI: No signs and/or symptoms were reported involving the gastrointestinal system. : No signs and/or symptoms were reported regarding the genitourinary system. EENT: No signs and/or symptoms were reported regarding the EENT system. Derm: Skin is pink, warm \T\ dry. Musculoskeletal: Circulation, motion, and sensation intact. Capillary refill < 3 seconds. 22:00 Reassessment: Patient appears in no apparent distress at this time. Patient is alert, rr5 oriented x 3, equal unlabored respirations, skin warm/dry/pink. snacks given with good appetite. 23:02 Reassessment: Patient appears in no apparent distress at this time. resting eyes closed rr5 breathing spontaneously at room air on side lying position. ETOH result relayed to ED provider with verbal order to repeat the ETOH at 0600H and for referral to [facility]. 08/05 00:54 Reassessment: Patient and/or family updated on plan of care and expected duration. Pain ea level reassessed. Pt resting with eyes closed, respirations even and unlabored, chest expansions even and symmetrical. 01:25 Reassessment: Patient and/or family updated on plan of care and expected duration. Pain ea level reassessed. Pt resting with eyes closed respirations even and unlabored, chest expansions even and symmetrical. 01:58 Reassessment: Patient appears in no apparent distress at this time. Patient is alert, rr5 oriented x 3, equal unlabored respirations, skin warm/dry/pink. woke up calm cooperative,went to restroom steady gait noted. seen by ED provider for repeat ETOH. 02:36 Reassessment: Patient appears in no apparent distress at this time. Patient is alert, rr5 oriented x 3, equal unlabored respirations, skin warm/dry/pink. ETOH result relayed to ED provider with verbal order to repeat ETOH at 0530H. 04:15 Reassessment: Patient appears in no apparent distress at this time. resting eyes closed rr5 breathing spontaneously at room air. 05:19 Reassessment: Patient appears in no apparent distress at this time. Patient is alert, rr5 oriented x 3, equal unlabored respirations, skin warm/dry/pink. went to restroom steady gait, calm cooperative. 05:28 Reassessment: reassessment done by ED provider patient answered calm, denies suicidal rr5 thoughts, cooperative. no complaints made. 05:40 Reassessment: Patient appears in no apparent distress at this time. Patient is alert, rr5 oriented x 3, equal unlabored respirations, skin warm/dry/pink. discharge instruction given and explained without complaints made. 05:41 Reassessment: community resources packet explained and given to patient. for follow up rr5 as [facility] phone number given. Psych: 08/04 22:00 Subjective: Patient's mood is sad, Delusions are denied, Hallucinations are denied rr5 Having thoughts of suicide. Denies suicidal plan. Safety Checks: Personal items have been removed. Door is open. No visitors are present at this time. 22:00 Objective: Patient is cooperative, Speech is normal, Affect is appropriate. rr5 Interventions: Removed personal items and placed in bag. Patient placed in hospital gown. Searched person for dangerous items. Urine collected and sent for urine drug test. Belonging list filled out. Suicide Risk Assessment: Sad Person Scale: Sex of patient: Female: Score 0 points. Age of patient: Score 1 point if patient is over 65. Depression: Score 1 point if signs of depression are present. Previous Attempt: Score 0 point if patient has not previously attempted suicide. Substance Abuse: Score 0 point if patient does not abuse alcohol or drugs. Rational Thinking: Score 0 point if patient has rational thinking. Social Support: Score 1 point if social support is lacking and/or unavailable. Organized Plan: Score 0 if patient did not have an organized plan in place. Relationship: Score 1 point if patient is , , , or for a single male Chronic Sickness: Score 1 point if patient has illness, chronic, debilitating, or severe. TOTAL POINTS: If total points are 5-6, proposed clinical action is to strongly consider hospitalization, depending upon confidence in the follow-up arrangement. Implement suicide precautions. Pt denies substance abuse. Commitment: Patient will be a voluntary commitment. Vital Signs: 20:55 BP 177 / 123; Pulse 112; Resp 19; Temp 98.2; Pulse Ox 100% ; Weight 68.04 kg; Height 5 rr5 ft. 2 in. (157.48 cm); Pain 0/10; 22:07 BP 155 / 80; Pulse 95; Resp 19; Pulse Ox 99% ; rr5 08/05 02:00 BP 142 / 70; Pulse 85; Resp 16; Temp 98; Pulse Ox 99% ; rr5 05:40 BP 146 / 80; Pulse 80; Resp 16; Temp 98.1; Pulse Ox 99% ; rr5 08/04 20:55 Body Mass Index 27.44 (68.04 kg, 157.48 cm) rr5 ED Course: 08/04 20:53 Patient arrived in ED. rr5 21:00 Triage completed. rr5 21:01 Arm band placed on right wrist. rr5 21:01 No provider procedures requiring assistance completed. rr5 21:04 Rivas Lin, RN is Primary Nurse. rr5 21:10 EKG done, by ED staff, reviewed by Deepak Sherwood MD. rr5 21:15 Inserted saline lock: 20 gauge in right hand, using aseptic technique. rr5 21:44 Deepak Sherwood MD is Attending Physician. pkl 23:05 Patient has correct armband on for positive identification. Placed in gown. Bed in low rr5 position. 08/05 05:40 IV discontinued, intact, bleeding controlled, No redness/swelling at site. Pressure rr5 dressing applied. Administered Medications: 08/04 22:06 Drug: Banana Bag - (NS 0.9% 1000 ml, foLIC Acid 1 mg, Thiamine 100 mg, Multivitamin 1 rr5 amp) Route: IV; Rate: calculated rate; Site: right hand; 08/05 04:00 Follow up: Response: No adverse reaction; IV Status: Completed infusion; IV Intake: rr5 1000ml 08/04 23:57 Drug: Cipro 500 mg Route: PO; ea 08/05 01:00 Follow up: Response: No adverse reaction rr5 Intake: 04:00 IV: 1000ml; Total: 1000ml. rr5 Outcome: 05:27 Discharge ordered by . pkl 05:40 Discharged to home ambulatory. rr5 05:40 Condition: stable 05:40 Discharge instructions given to patient, Instructed on discharge instructions, follow up and referral plans. medication usage, Demonstrated understanding of instructions, follow-up care, medications, Prescriptions given X 1. 05:41 Patient left the ED. rr5 Addendum: 08/07/2020 17:42 Addendum: Culture Results: Positive urine culture. No further action required. Other: isabelle mcghee Pt reports that she is having no urinary symptoms at this time. No further action needed.. Phone call Attempt #1 contact made. Signatures: Aimee Hamilton, RN Deepak Scott MD MD pkl Antunez, Elena, RN RN ea Roque, Raymond, RN RN rr5
--- NOTE | 2020-08-05 06:23 | EKG ---
Test Date: 2020-08-04 Test Time: 21:08:39 Director Of Sales: RR MEASUREMENT RESULTS: Intervals: Rate: 100 AR: 170 QRSD: 76 QT: 368 QTc: 474 [place]: P: 40 AR: 170 QRS: -10 T: 53 INTERPRETIVE STATEMENTS: Normal sinus rhythm Possible Inferior infarct, age undetermined Abnormal ECG Compared to ECG 10/16/2006 12:44:47 Myocardial infarct finding now present Electronically Signed On 08-05-20 06:22:32 BREAD PANNER by Rai Jarquin
[2020-08-05 21:15] VITALS: O2SAT 99
[2020-08-05 21:19] VITALS: BP 146/80; TEMP 98.1
== END 2020-08-05 05:41 | disposition home or self-care (01) ==
LOC: ER 20:44
DX: F32.9 Major depressive disorder, single episode, unspecified (principal); F10.129 Alcohol abuse with intoxication, unspecified; I10 Essential (primary) hypertension
CPT/HCPCS: 36415; 80048; 80076; 80307; 80320; 80329; 81003; 81015; 85025; 85610; 85730; 87077; 87086; 87088; 87186; 93005; 96365; 96366; 99285; J3411; J7030